=== PATIENT | male | born 1950 | race Caucasian/White ===

== ENCOUNTER 2017-08-21 08:50 | Emergency (ER) | payer OTHER ==
[2017-08-21 08:55] VITALS: BP 150/77; BMI 31.5
[2017-08-21] MEDS ORDERED: ADACEL TDaP IM ONE ×2 (08:56→08:58)
[2017-08-21] MEDS ORDERED: HYDROGEN PEROXIDE 3% ONE (08:56)
--- NOTE | 2017-08-21 09:30 | DR.GENAD ---
HPI - PCP Primary Care Physician: malena king - HPI Comment HPI Comment: HEMORRHAGE AT HOME FROM VARICOSE VEIN. PRESSURE APPLIED. STILL BLEED WHEN PRESSURE DRESSING REMOVE. - Complaint/Symptoms Chief Complaint Doctors Comments: BLEEDING FROM VARICOSE VEIN. Chief Complaint:: pt stated he has varicos veins and he had one busted that has been bleeding. she stated this has not been the firts time it has happened. - Nurses notes reviewed Nurses Notes Review: Yes - Source History Provided: Patient, EMS - Mode of Arrival Mode of Arrival: EMS - Timing Onset of Chief Complaint: 08/21/17 Came on: Suddenly - Duration Duration: Constant Duration: Hours - Severity Severity: Moderate PMH - PMH Past Medical History: Yes Past Medical History: Arthritis, COPD, Diabetes, Hypertension Past Surgical History: Yes Surgical History: Ortho Surgery - Family History History of Family Medical Conditions: No - Social History Does patient currently use any type of tobacco product: No Have you used tobacco products in the last 12 months: No Type of Tobacco Use: None Does any household member use tobacco: No Alcohol Use: None Do you use any recreational Drugs:: No Lives With: Family Lives Where: Home - infectious screening In the last 2 months have you had wt loss of >10#?: NO Have you had fever, night sweats or hemotysis?: No Have you traveled outside the country in the last 6 months?: No Isolation: Standard ROS - Review of Systems Constitutional: No Symptoms Reported Eyes: No Symptoms Reported ENTM: No Symptoms Reported Respiratoy: No Symptoms Reported Cardiovascular: No Symptoms Reported Gastrointestinal/Abdominal: No Symptoms Reported Genitourinary: No Symptoms Reported Neurological: No Symptoms Reported Musculoskeletal: No Symptoms Reported Integumentary: No Symptoms Reported Hematologic/Lymphatic: Easy Bleeding, Other (VARICOSE VEIN BLEEDING.) All Other Systems: Reviewed and Negative PE - Vital Signs Vitals: Temperature 98.9 F Pulse Rate 75 Respiratory Rate 16 Blood Pressure 150/77 O2 Sat by Pulse Oximetry 100 - General Limitations: No Limitations General Appearance: Alert - Head Head Exam: Normal Inspection - Eyes Eye exam: Normal Appearance - ENT ENT Exam: Normal External Ear Exam TM/Canal Exam: Bilateral Normal Nose Exam: Normal Nose Exam Mouth Exam: Normal Inspection Throat Exam: Normal Inspection - Neck Neck Exam: Normal Inspection - Chest Chest Inspection: Symmetric Chest Wall Rise - Respiratory Respiratory Exam: Normal Lung Sounds Bilat Respiratory Exam: Bilateral Clear to Auscultation - Cardiovascular Cardiovascular Exam: Regular Rate, Normal Rhythm, Normal Heart Sounds - Abdominal Exam Abdominal Exam: Normal Inspection - Extremities Extremities Exam: Other (BLEEDING FROM VARICOSE VEIN AT THE ANKLELT SIDE.) - Back Back Exam: Normal Inspection - Neurologic Neurological Exam: Alert, Oriented X3 - Psychiatric Psychiatric Exam: Normal Affect, Normal Mood - Skin Skin Exam: Normal Color MDM - Additional Information Additional Information Obtained From: Family - Differential Diagnosis Differential Diagnosis: VARICOSE VEIN BLEEDING. Course - Treatment Treatment: SEE ORDERS. - Education/Counseling Education/Counseling: Patient, Family, Education Educated On: Diagnosis, Needs for Follow Up Procedures - Procedure Comments Procedures: CAUTILIZATION OF BLEEDING VARICOSE VEIN WITH CAUTERY. BLEEDING RESOLVE. - Diagnosis Discharge Problem: Bleeding from varicose vein - Discharge Plan Disposition: 01 HOME, SELF-CARE Condition: Stable - Follow ups/Referrals Follow ups/Referrals: GLYNN KING [Primary Care Provider] - 3 days - Instructions Instructions: Bleeding Varicose Veins Additional Instructions: RETURN TO ED IF WORSE.
== END 2017-08-21 09:52 | disposition home or self-care (01) ==
LOC: ER 09:31
DX: I86.8 Varicose veins of other specified sites (principal)
CPT/HCPCS: 90471; 96365; 99282